=== PATIENT | female | born 1965 | race Caucasian/White ===

== ENCOUNTER 2025-02-08 19:53 | Emergency (ER) | payer OTHER ==
[~2025-02-08] VITALS: Ht 162.6 cm; Wt 78.6 kg
[2025-02-08 20:05] LABS: BASOPHILS 0.5 % (0.1-1.2); EOSINOPHILS 2.2 % (0.7-5.8); LYMPHOCYTES 19.6 % (19.3-51.7); MCH 19.2 PG (25.6-32.2); MCHC 28.4 g/dL (32.2-35.5); MCV 67.6 fL (79.4-94.8); MONOCYTES 5.3 % (4.7-12.5); NEUTROPHILS 70.7 % (34.0-71.1); RBC 5.16 M/uL (3.93-5.22)
[2025-02-08 20:23] LABS: ALCOHOL, MEDICAL <3 ng/dL (<3); ALT (SGPT) 46 U/L (14-59); AST (SGOT) 63 U/L (15-37); GLOMERULAR FILTRATION RATE,EST 74 mL/min (>60); PROTEIN, TOTAL 7.5 g/dL (6.4-8.2); UREA NITROGEN 19 mg/dL (7-18)
[2025-02-08 20:41] LABS: ABO AB; RH POSITIVE
[2025-02-08 20:42] LABS: ANTIBODY SCREEN NEGATIVE
[2025-02-08] MEDS ORDERED: DIPHTH,PERTUSS(ACELL),TET VAC 0.5 ML SYRINGE IM ONE (21:15)
[2025-02-08 21:29] LABS: BLOOD/HGB, URINE SMALL (Negative); KETONE, URINE NEGATIVE (Negative); LEUK ESTERASE, URINE NEGATIVE (negative); NITRITE, URINE POSITIVE (negative)
[2025-02-08] MEDS ORDERED: HYDROmorphone HCL 1 MG/ML SYR IV PRN (21:30)
[2025-02-08 21:34] LABS: BACTERIA, URINE RARE /hpf (negative); CRYSTALS, URINE NONE SEEN (0-1+); EPITHELIAL CELLS, URINE SQUAMOUS 1+ /lpf (0-1+)
[2025-02-08 21:35] LABS: CASTS, URINE NONE SEEN \\lpf; REFLEX CULTURE, URINE Yes (No)
[2025-02-08 21:44] LABS: AMPHETAMINES, URINE NEGATIVE (NEGATIVE); BARBITURATES, URINE NEGATIVE (NEGATIVE); BENZODIAZEPINE, URINE POSITIVE (NEGATIVE); CANNABINOID, URINE NEGATIVE (NEGATIVE); COCAINE, URINE NEGATIVE (NEGATIVE); ECSTASY, URINE NEGATIVE (NEGATIVE); FENTANYL, URINE POSITIVE (NEGATIVE); METHADONE, URINE NEGATIVE (NEGATIVE); OPIATES, URINE POSITIVE (NEGATIVE); OXYCODONE, URINE NEGATIVE (NEGATIVE); PHENCYCLIDINE, URINE NEGATIVE (NEGATIVE)
[2025-02-08 23:06] VITALS: BP 164/91
[2025-02-14 09:03] LABS: SMEAR REVIEW BLOOD SEE COMMENTS
== END 2025-02-08 23:06 | disposition short-term general hospital (02) ==
LOC: ED 19:53
PROVIDERS: Emergency Medicine
DX: S06.5XAA Traumatic subdural hemorrhage with loss of consciousness status unknown, initial encounter (principal); S06.6XAA Traumatic subarachnoid hemorrhage with loss of consciousness status unknown, initial encounter; S06.2XAA Diffuse traumatic brain injury with loss of consciousness status unknown, initial encounter; S12.040A Displaced lateral mass fracture of first cervical vertebra, initial encounter for closed fracture; S12.031A Nondisplaced posterior arch fracture of first cervical vertebra, initial encounter for closed fracture; S22.31XA Fracture of one rib, right side, initial encounter for closed fracture; V28.99XA Unspecified rider of other motorcycle injured in noncollision transport accident in traffic accident, initial encounter
CPT/HCPCS: 36415; 70450; 70486; 71260; 72125; 74177; 80053; 80307; 81001; 83690; 85025; 85060; 86850; 86900; 86901; 87077; 87088; 87186; 90471; 90715; 96374; 99291; A4311; G0390; G0480; J1171